=== PATIENT | female | born 1960 | race Caucasian/White ===

== ENCOUNTER → 2019-02-08 07:52 | Outpatient (CLI) | payer OTHER | END | disposition home or self-care (01) | LOC: LAB 07:52 | DX: K80.12 Calculus of gallbladder with acute and chronic cholecystitis without obstruction (principal); K80.10 Calculus of gallbladder with chronic cholecystitis without obstruction; I10 Essential (primary) hypertension ==

== ENCOUNTER 2019-03-07 07:13 | Outpatient (CLI) | payer OTHER | END 2019-03-07 09:50 | disposition home or self-care (01) | LOC: LAB 07:13 | DX: Q66.0 Congenital talipes equinovarus (principal) ==